=== PATIENT | male | born 1950 | race Caucasian/White ===

== ENCOUNTER → 2019-07-20 | Outpatient (CLI) | payer OTHER | END | disposition home or self-care (01) | LOC: US 13:24 | DX: N43.2 Other hydrocele (principal) ==

== ENCOUNTER 2025-06-07 19:23 | Emergency (ER) | payer OTHER ==
[~2025-06-07] VITALS: Ht 175.2 cm; Wt 81.6 kg
[2025-06-07] MEDS ORDERED: Tdap Vaccine 0.5 ML SYR (Adult Vaccine) IM ONE (19:30)
[2025-06-07] MEDS ORDERED: CEPHALEXIN500 M1 PO (21:43)
== END 2025-06-07 22:00 | disposition home or self-care (01) ==
LOC: ED 19:23
DX: S01.01XA Laceration without foreign body of scalp, initial encounter (principal); W19.XXXA Unspecified fall, initial encounter; Y93.89 Activity, other specified; Y92.89 Other specified places as the place of occurrence of the external cause; Y99.8 Other external cause status

== ENCOUNTER 2025-06-09 13:09 | Emergency (ER) | payer OTHER ==
[~2025-06-09 13:09] MED LIST: CEPHALEXIN500 M1 PO
== END 2025-06-09 13:54 | disposition home or self-care (01) ==
LOC: ED 13:09
DX: S01.01XD Laceration without foreign body of scalp, subsequent encounter (principal); Z48.00 Encounter for change or removal of nonsurgical wound dressing; X58.XXXD Exposure to other specified factors, subsequent encounter

== ENCOUNTER 2025-06-15 11:38 | Emergency (ER) | payer OTHER ==
[~2025-06-15] VITALS: Ht 172.7 cm; Wt 81.2 kg
[2025-06-15] MEDS ORDERED: Bacitracin Zinc 14 GM TUBE T ONE (12:20)
== END 2025-06-15 12:35 | disposition home or self-care (01) ==
LOC: ED 11:38
DX: S01.01XD Laceration without foreign body of scalp, subsequent encounter (principal); F41.9 Anxiety disorder, unspecified; X58.XXXD Exposure to other specified factors, subsequent encounter